=== PATIENT | female | born 1945 ===

== ENCOUNTER → 2019-05-11 | Outpatient (CLI) | payer MEDICARE, OTHER ==
--- NOTE | 2019-05-11 16:14 | KCIC ---
Bone mineral density exam History: Malignant neoplasm of the breast, takes calcium supplement, postmenopausal Comparison: None Findings: Bone mineral density examination utilizing DEXA was performed. Left hip bone mineral density of 0.805 g/cm2 corresponds with a T score -1.1, Z score 0.6. The bone mineral density of the lumbar spine was 1.170 g/cm2 which corresponds with a T-score of 1.1, Z score 3.5. By [employer] on Osteoporosis criteria, a T score of 0 to-1 SD is considered to be within normal limits. A T score of -1 to -2.5 SD is considered osteopenia. A T score less than -2.5 SD is considered osteoporosis Impression: 1. There is normal bone density of the lumbar spine. There is osteopenia of the left hip. Electronically signed by: Trey Pleitez MD (05/11/2019 4:11 PM) [facility]
== END | disposition home or self-care (01) ==
LOC: KCIC DEXA 10:10
PROVIDERS: ATTEND Family Medicine
DX: M85.88 Other specified disorders of bone density and structure, other site (principal); Z78.0 Asymptomatic menopausal state; Z85.3 Personal history of malignant neoplasm of breast
CPT/HCPCS: 77080